=== PATIENT | female | born 1995 | race Caucasian/White ===

== ENCOUNTER 2019-07-11 10:58 | Outpatient (CLI) | payer SELFPAY ==
--- NOTE | 2019-07-11 11:08 | NUR ---
Pt arrives on unit via wheelchair with mid- "Dora." States delivery of female at 0818 this morning with placenta delivering at 0824. Per mid-, "shoulder dystocia delivery with position changes and delivery of anterior shoulder. NC x2 and cord wrapped around foot." Mid- uncertain whether laceration is 2nd or 3rd degree. Per mid- "laceration goes to sphincter, left labial wall laceration, bleeding has been fine." VSS on admission. Admission assessment completed. Pt updated on POC. No questions or concerns at this time.
[2019-07-11 11:15] VITALS: BP 116/69; PULSE 107; TEMP 98.1
--- NOTE | 2019-07-11 11:32 | NUR ---
Pt states delivery of viable female infant on 07/11/19 at 0818 weighing 8lbs 8oz. G1L0 at 41.4 weeks gestation.
--- NOTE | 2019-07-11 11:50 | NUR ---
Dr. Toure at bedside. Laceration repair performed. See physician documentation.
== END 2019-07-11 12:30 | disposition home or self-care (01) ==
LOC: LDRO 10:58 → LDR 10:59 → LDRO 10:59 → LDR 12:30 → LDRO 12:30
DX: O70.20 Third degree perineal laceration during delivery, unspecified (principal); Z3A.41 41 weeks gestation of pregnancy
CPT/HCPCS: OP